=== PATIENT | male | born 1960 | race Caucasian/White ===

== ENCOUNTER 2017-01-08 12:20 | Emergency (ER) | payer BC ==
[2017-01-08] MEDS ORDERED: PREGABALIN 100 MG CAPSULE PO ONE ×2 (12:41→14:47)
--- NOTE | 2017-01-08 12:43 | ER Document Report ---
ED Medical Screen (RME) - General Chief Complaint: Medication Refill Stated Complaint: WEAKNESS Time Seen by Provider: 01/08/17 12:40 Mode of Arrival: Wheelchair Information source: Patient Notes: 56 yr old male presents with complaints of body aches need for lyrica refil. [place] ,note he was feeling weak Patient has a history of renal insufficiency I have greeted and performed a rapid initial assessment of this patient. A comprehensive ED assessment and evaluation of the patient, analysis of test results and completion of the medical decision making process will be conducted by additional ED providers. PHYSICAL EXAMINATION: GENERAL: Well-appearing, well-nourished and in no acute distress. HEAD: Atraumatic, normocephalic. EYES: Pupils equal round extraocular movements intact, conjunctiva are normal. ENT: Nares patent NECK: Normal range of motion LUNGS: No respiratory distress Musculoskeletal: Normal range of motion NEUROLOGICAL: Normal speech, normal gait. PSYCH: anxious SKIN: Warm, Dry, normal turgor, no rashes or lesions noted. TRAVEL OUTSIDE OF THE [place] IN LAST 30 DAYS: No - Related Data Allergies/Adverse Reactions: No Known Allergies Allergy (Unverified 01/08/17 12:27) Past Medical History Renal/ Medical History: Denies: Hx Peritoneal Dialysis Physical Exam - Vital signs Vitals: Temp Pulse Resp BP Pulse Ox 97.6 F 63 20 136/88 H 99 01/08/17 12:28 01/08/17 12:28 01/08/17 12:28 01/08/17 12:28 01/08/17 12:28 Course - Vital Signs Vital signs: Temp Pulse Resp BP Pulse Ox 97.6 F 63 20 136/88 H 99 01/08/17 12:28 01/08/17 12:28 01/08/17 12:28 01/08/17 12:28 01/08/17 12:28
[2017-01-08 13:46] LABS: ABSOLUTE LYMPHOCYTES (AUTO) 1.3 10^3/uL (0.5-4.7); ABSOLUTE MONOCYTES (AUTO) 0.6 10^3/uL (0.1-1.4); ABSOLUTE NEUT (AUTO) 7.4 10^3/uL (1.7-8.2); BASOPHILS % (AUTO) 0.4 % (0-2); EOSINOPHILS % (AUTO) 0.4 % (0-6); HEMATOCRIT 47.4 % (37.9-51.0); HEMOGLOBIN 16.2 g/dL (13.5-17.0); HGB HCT DIFFERENCE 1.2; LYMPHOCYTES % (AUTO) 13.9 % (13-45); MEAN CORPUSCULAR HEMOGLOBIN 31.3 pg (27.0-33.4); MEAN CORPUSCULAR HGB CONC 34.1 g/dL (32.0-36.0); MEAN CORPUSCULAR VOLUME 92 fl (80-97); MONOCYTES % (AUTO) 6.5 % (3-13); RED BLOOD COUNT 5.16 10^6/uL (4.35-5.55); RED CELL DISTRIBUTION WIDTH 13.6 % (11.5-14.0); SEGMENTED NEUTROPHILS % (AUTO) 78.8 % (42-78); WHITE BLOOD COUNT 9.4 10^3/uL (4.0-10.5)
[2017-01-08 13:57] LABS: ALANINE AMINOTRANSFERASE 62 U/L (21-72); ALBUMIN 4.6 g/dL (3.5-5.0); ALKALINE PHOSPHATASE 120 U/L (38-126); ANION GAP 16 (5-19); ASPARTATE AMINO TRANSFERASE 38 U/L (17-59); BILIRUBIN,DIRECT 0.4 mg/dL (0.0-0.4); BILIRUBIN,TOTAL 0.6 mg/dL (0.2-1.3); BLOOD UREA NITROGEN 21 mg/dL (7-20); CALCIUM 10.3 mg/dL (8.4-10.2); CARBON DIOXIDE 25 mmol/L (22-30); CHLORIDE 100 mmol/L (98-107); CREATININE RESULT 0.85 mg/dL (0.52-1.25); GLUCOSE 103 mg/dL (75-110); LIPASE 120.4 U/L (23-300); POTASSIUM 3.9 mmol/L (3.6-5.0); TOTAL PROTEIN 7.4 g/dL (6.3-8.2)
[2017-01-08 14:41] VITALS: BP 141/80
[2017-01-08] MEDS ORDERED: HYDROMORPHONE HCL INJ/PF 2 MG/ML AMPULE IV ONE (14:47)
--- NOTE | 2017-01-08 14:49 | ER Document Report ---
ED General - General Chief Complaint: Medication Refill Stated Complaint: WEAKNESS Time Seen by Provider: 01/08/17 12:40 Mode of Arrival: Wheelchair Information source: Patient Notes: Patient is a 56-year-old male who presents to the ER today for refill of his Lyrica for his diabetic neuropathy as he has been out for 3 days. He has had low back pain with shooting "electric" pain radiating down the left leg for 2 days now. Patient states that this is making him very anxious and that he is "having a panic attack." He takes Celexa but has nothing for acute anxiety. He denies any suicidal or homicidal ideations. He initially told triage that he was "weak," however really what he told me was that he laid around the house for the last 3 days because it hurt too much to get up and walk around. The girlfriend called this "weakness" but he states he was just in too much pain to move around. TRAVEL OUTSIDE OF THE [place] IN LAST 30 DAYS: No - Related Data Allergies/Adverse Reactions: No Known Allergies Allergy (Verified 01/08/17 13:26) Home Medications: Current Home Medications Citalopram Hydrobromide [Celexa 10 mg Tablet] 10 mg PO 01/08/17 [History] Esomeprazole Magnesium [Nexium] 40 mg PO 01/08/17 [History] Insulin Detemir [Levemir Insulin 300 Units/3 ml Insuln.pen] 40 unit SUBCUT QHS 01/08/17 [History] Metformin HCl 500 mg PO 01/08/17 [History] Pregabalin [Lyrica] 200 mg PO TID 01/08/17 [History] Past Medical History - General Information source: Patient - Social History Smoking Status: Current Every Day Smoker Chew tobacco use (# tins/day): Yes - less then 1 can Frequency of alcohol use: None Drug Abuse: None Family History: Reviewed & Not Pertinent Patient has suicidal ideation: No Patient has homicidal ideation: No Endocrine Medical History: Reports: Hx Diabetes Mellitus Type 2 - with neuropathy Renal/ Medical History: Denies: Hx Peritoneal Dialysis GI Medical History: Reports: Hx Gastroesophageal Reflux Disease Psychiatric Medical History: Reports: Hx Depression Past Surgical History: Reports: Hx Orthopedic Surgery - lower back sx 1999,2015 L5 and S1 Review of Systems - Review of Systems Constitutional: No symptoms reported EENT: No symptoms reported Cardiovascular: No symptoms reported Respiratory: No symptoms reported Gastrointestinal: No symptoms reported Genitourinary: No symptoms reported Male Genitourinary: No symptoms reported Musculoskeletal: See HPI Skin: No symptoms reported Hematologic/Lymphatic: No symptoms reported Neurological/Psychological: See HPI Physical Exam - Vital signs Vitals: Temp Pulse Resp BP Pulse Ox 97.6 F 63 20 136/88 H 99 01/08/17 12:28 01/08/17 12:28 01/08/17 12:28 01/08/17 12:28 01/08/17 12:28 - Notes Notes: PHYSICAL EXAMINATION: GENERAL: Anxious, in no acute distress. HEAD: Atraumatic, normocephalic. EYES: Pupils equal round and reactive to light, extraocular movements intact, sclera anicteric, conjunctiva are normal. NECK: Normal range of motion, supple without lymphadenopathy LUNGS: CTAB and equal. No wheezes rales or rhonchi. HEART: Regular rate and rhythm without murmurs ABDOMEN: Soft, no tenderness. No guarding, no rebound BACK: Left SI joint tenderness, no vertebral tenderness, normal ROM GI/: no CVA tenderness EXTREMITIES: Decreased range of motion of the left hip secondary to pain, no pitting edema. No cyanosis. NEUROLOGICAL: Cranial nerves grossly intact. Normal sensory/motor exams. PSYCH: Anxious SKIN: Warm, Dry, normal turgor, no rashes or lesions noted Course - Re-evaluation Re-evalutation: 01/09/17 16:12 Patient felt much better after I told him I would refill his Lyrica, I did give him some pain medication here to get him out of his acute pain. It did also help with his anxiety. - Vital Signs Vital signs: Temp Pulse Resp BP Pulse Ox 98.4 F 66 16 141/80 H 99 01/08/17 14:36 01/08/17 14:36 01/08/17 14:36 01/08/17 14:36 01/08/17 12:28 - Laboratory Result Diagrams: 01/08/17 13:32 01/08/17 13:32 Laboratory results interpreted by me: 01/08/17 01/08/17 13:32 13:32 Seg Neutrophils % 78.8 H BUN 21 H Calcium 10.3 H Discharge - Discharge Clinical Impression: Neuropathy, Anxiety Condition: Stable Disposition: HOME, SELF-CARE Additional Instructions: Return immediately for any new or worsening symptoms. Follow up with primary care provider, call tomorrow to make followup appointment. Prescriptions: Pregabalin [Lyrica] 200 mg PO TID #30 capsule Referrals: ANA PAULA HOUSTON MD [Primary Care Provider] - Follow up as needed
[2017-01-08] MEDS ORDERED: HYDROXYZINE PAMOATE 25 MG CAPSULE #4 (ER DISP) PO SCH (15:00)
== END 2017-01-08 15:29 | disposition home or self-care (01) ==
LOC: ER 12:20
DX: E11.40 Type 2 diabetes mellitus with diabetic neuropathy, unspecified (principal); F17.220 Nicotine dependence, chewing tobacco, uncomplicated; F41.9 Anxiety disorder, unspecified
CPT/HCPCS: 99283; 96374; 36415; 83690; 85025; 80053; J3490; J1170